=== PATIENT | male | born 1940 | race Caucasian/White ===

== ENCOUNTER 2018-01-18 05:49 | Inpatient (IN) | payer OTHER ==
[2018-01-07 08:51] LABS: ABSOLUTE BASOPHILS 0.1 thou/uL (0.0-0.2); ABSOLUTE EOSINOPHILS 0.1 thou/uL (0.0-0.7); ABSOLUTE LYMPHOCYTES 1.7 thou/uL (0.8-5.3); ABSOLUTE MONOCYTES 0.6 thou/uL (0.0-1.2); BASOPHILS 0.9 %; EOSINOPHILS 2.2 %; HEMATOCRIT 47.3 % (42.0-52.0); HEMOGLOBIN 16.4 gm/dL (14.0-18.0); LYMPHOCYTES 26.1 %; MCH 31.4 pg (26.0-34.0); MCHC 34.7 g/dL (28.0-37.0); MCV 90.5 fL (80.0-100.0); MONOCYTES 9.7 %; MPV 7.3 fl. (7.2-11.1); NUCLEATED RBCS 0 /100WBC; PLATELET COUNT* 202 thou/uL (150-400); POLYS 61.1 %; RBC 5.23 mil/uL (4.50-6.00); RDW-CV 13.5 % (10.5-14.5); WBC 6.6 thou/uL (4.0-11.0)
[2018-01-07 09:00] LABS: APTT 38.2 Seconds (25.0-31.3); INR 2.5; PROTIME 23.9 Seconds (9.20-11.50)
[2018-01-07 09:13] LABS: ALBUMIN 4.2 g/dL (3.4-5.0); CALCIUM 9.2 mg/dL (8.5-10.1); CREATININE 0.9 mg/dL (0.6-1.3); POTASSIUM 4.3 mmol/L (3.5-5.1); TOTAL BILIRUBIN 0.8 mg/dL (<0.1-1.0); TOTAL PROTEIN 7.8 g/dL (6.4-8.2)
[2018-01-07 09:51] LABS: ESR (SEDRATE) 2 mm/hr (0-20)
[~2018-01-18] VITALS: Ht 170.2 cm; Wt 80.7 kg
--- NOTE | ~2018-01-18 | H ---
[address] [address] HISTORY AND PHYSICAL Name: ZACH BAER Room: [address] IN .R.#: [id number] Admission: 01/18/18 Attend Phys: Zach Dial DO Discharge: 01/19/18 Date of : 44 Report #: [id number] THIS REPORT FOR: //name// For History and Physical please refer to the handwritten note in the patient's medical record. By: [facility] Staff STEFAN /CHANTEL
--- NOTE | ~2018-01-18 | EKG ---
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
[~2018-01-18 05:49] MED LIST: ASPIR 8181 M1 PO; BENADRYL25 MG PO; CARVEDILOL6.25 MG PO; CLARITIN10 MG PO; COUMADIN 2.5MG2.5 M1 PO; COUMADIN 5 MG TA5 M1 PO; ELIQUIS5 MG PO; LOPRESSOR25 PO; LOPRESSOR50 PO; LOVASTAT20 PO; LOVASTATIN 20 M20 MG PO; MEVACOR 20 MG T20 MG PO; MEVACOR40 MG PO; NORCO 5-325 TA1 EACH PO; OMEPRAZOLE 20 M20 M1 PO; OMEPRAZOLE20 MG PO; OMEPRAZOLE40 MG PO; SOTALOL80 MG PO; blood pressure med
[2018-01-18 06:23] LABS: INR 1.3; PROTIME 12.5 Seconds (9.20-11.50)
[2018-01-18 06:30] VITALS: BP 139/91
--- NOTE | 2018-01-18 12:33 | NUR ---
PATIENT TRANSFERRED FROM PACU TO ROOM 105. ALERT AND ORIENTED. DENIES PAIN. SPINAL BLOCK. NAVARRETE IN PLACE WITH YELLOW URINE. NOTIFIED PT THAT PATIENT WOULD LIKE TO DC HOME TONIGHT AND WOULD NEED THERAPY PRIOR. FAMILY AT BEDSIDE. DRESSING TO KNEE DRY AND INTACT. TEDS/SCD'S IN PLACE. BED ALARM SET. CALL LIGHT WITHIN REACH. WILL CONTINUE TO MONITOR.
[2018-01-18 15:04] VITALS: BP 139/91
[2018-01-18] MEDS ORDERED: OXYCODONE HCL 55 MG PO (15:10)
--- NOTE | 2018-01-18 15:28 | NUR ---
CM SPOKE TO THE PATIENT TO DISCUSS HOME SITUATION, DISCHARGE PLANNING, AND TO INFORM OF THE ROLE OF CM. PATIENT ALERT, ORIENTED, AND INDEPENDENT WITH ADL'S. PATIENT RESIDES AT [facility] WITH SPOUSE AND SHE IS ABLE TO ASSIST AT HOME NEEDED. PATIENT OWNS A WALKER AND BROUGHT IT WITH HIM TO THE HOSPITAL. PATIENT INFORMS CM THAT HE PLANS TO GO HOME TODAY AND WILL HAVE OUTPATIENT PT AT [facility] AT D/C. CM CONTACTED [facility] TO INFORM OF THE REFERRAL FOR PT AND FAXED THE OUTPATIENT PT ORDERS. PATIENT TO BE SEEN BY PT PRIOR TO TO D/C TO ASSESS MOBILITY, AND SAFETY. CM WILL REMAIN AVAILABLE TO ASSIST AND FOLLOW NEEDED.
[2018-01-18 16:00] VITALS: BP 140/84
--- NOTE | 2018-01-18 16:25 | NUR ---
PATIENT REMAINS ALERT AND ORIENTED. STILL REPORTS NUMBNESS AND TINGLING IN SURGICAL LEG (SPINAL BLOCK). PATIENT WAS ABLE TO WORK WITH PHYSICAL THERAPY. OXYIR GIVEN AT THIS TIME IN ANTICIPATION OF SPINAL WEARING OFF SOON. UP TO CHAIR. NAVARRETE IN PLACE UNTIL LEG MORE AWAKE. TOLERATING MEALS. VSS. FAMILY AT BEDSIDE. PATIENT ENCOURAGED TO STAY THROUGH DINNER TO MAKE SURE PAIN IS CONTROLLED WITH PO MEDS. CALL LIGHT WITHIN REACH.WILL CONTINUE TO MONITOR.
--- NOTE | 2018-01-18 16:29 | NUR ---
PATIENTS DAUGHTER REPORTED EMESIS AFTER OXYIR GIVEN. WILL PAGE DOCTOR FOR NEW SCRIPT.
--- NOTE | 2018-01-18 16:47 | NUR ---
DR. HARMON HERE TO SEE PATIENT TO DISCUSS PAIN MEDICATION OPTIONS.
--- NOTE | 2018-01-18 16:59 | NUR ---
PATIENT TOLERATING DINNER AT THIS TIME. OXYIR DISCONTINUED DUE TO EMESIS, AND TRAMADOL ORDERED. PATIENT WILL TRY TRAMADOL THIS EVENING. PATIENT REPORTS LEG IS STILL NUMB ANDTINGLY BUT HE IS STARTING TO FEEL SOME PAIN. ENCOURAGED PATIENT TO STAY AHEAD OF PAIN. FAMILY AT BEDSIDE. WILL CONTINUE TO MONITOR.
[2018-01-18] MEDS ORDERED: TRAMADOL 50 MG50 MG PO (17:12)
[2018-01-18 20:20] VITALS: BP 128/64
[2018-01-19 00:09] VITALS: BP 112/59
[2018-01-19 04:00] VITALS: BP 106/58
[2018-01-19 04:15] LABS: HEMATOCRIT 36.6 % (42.0-52.0); HEMOGLOBIN 12.8 gm/dL (14.0-18.0)
--- NOTE | 2018-01-19 05:10 | NUR ---
PATIENT ALERT AND ORIENTED X 4. VITALS STABLE. RA. CAPNO IN PLACE. LEFT KNEE DRESSING C/D/I. NAVARRETE TO DEPENDENT DRAINAGE. FLUIDS INFUSING PER ORDER. PAIN CONTROL ISSUES DURING THE NIGHT. PHYSICIAN CONTACTED, ORDERS RECEIVED. PO AND IV AND PAIN MEDICATION GOVEN. PATIENT CURRENTLY RESTING COMFORTABLY. HOURLY ROUNDS. BED ALARM IN USE. NURSING WILL CONTINUE TO MONITOR.
[2018-01-19 08:00] VITALS: BP 110/68
[2018-01-19] MEDS ORDERED: HYDROCODONE-AP1 EAC6 PO (08:37)
--- NOTE | 2018-01-19 11:51 | NUR ---
PATIENT DISCHARGED TO HOME AT THIS TIME. SCRIPTS GIVEN. IV REMOVED. PATIENT HAS SCHEDULED OUTPATIENT PHYSICAL THERAPY. PATIENT INSTRUCTED TO RESUME COUMADIN TONIGHT PER ORTHO. PATIENT VERBALIZES UNDERSTANDING.
--- NOTE | 2018-02-10 06:50 | OP ---
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 PROCEDURE: Left unicompartmental knee replacement. SURGEON: Jennifer Dial DO. ASSISTANTS: Gregg Sampson DO and Timothy Monge DO. ESTIMATED BLOOD LOSS: 50 mL. SPECIMENS: None. COMPLICATIONS: None. PREOPERATIVE ANTIBIOTICS: Two grams Ancef. TOURNIQUET TIME: 71 minutes at 295 mmHg. ORTHOPEDIC IMPLANTS: Biomet Monroe partial knee system, left medial tibial tray size C, twin-pegged femoral component size small and a size 3-mm anatomic meniscal bearing. INDICATION FOR PROCEDURE: This 77-year-old male has previously underwent right unicompartmental knee replacement approximately 10 years ago. He has been doing very well. He has no complaints and has had a great outcome. He has been having significant pain and discomfort with minimal radiographic changes of DJD. He has failed conservative options of steroid injections and physical therapy. He does have medial joint space narrowing. DESCRIPTION OF PROCEDURE: Once written and verbal consent was obtained, the patient received an adductor canal block. He was taken to the operating room and given spinal as well as MAC anesthesia. Left lower extremity was prepared [place] [id number] OPERATIVE REPORT Name: JENNIFER BAER Room: [address] IN [facility].#: [id number] Admission: 01/18/18 Attend Phys: Jennifer Dial DO Discharge: 01/19/18 Date of : 44 Report #: [id number] for surgery. Well-padded tourniquet was applied and he was placed in the Monroe Uni knee kurtz. The timeout was performed to verify the correct operative site, location and procedure as the lower extremity was sterilely prepped and draped in an infection prevention specialist manner. A medial skin incision and arthrotomy was performed and the incision was taken down to the arthrotomy and osteophytes were removed around the medial and lateral aspect of the femoral condyle. Next, our bony cuts were made on the tibia, resecting approximately 2 mm of the medial tibial plateau. Next, our intramedullary lorelei was placed and the femoral sizer was placed and sized to size small C. The femoral jig was placed and was drilled, both the superior and inferior hole and the posterior condyle cutting guide was placed and cuts were made. Next, the reamer was used to make our distal femoral size at the zero spigot, taken through trial and was found to be tight and then was placed a 3 spigot and reamer was used again on the distal femur. All osteophytes and surrounding cartilage was removed. Trial components were placed and found to have symmetric flexion and extension gaps with the size 3 poly. Next, trial components were thoroughly removed and the Unicorn reamer was placed and the chamfer reamer was performed. All chondral areas were removed and found to have good surfaces. The oscillating saw was used to make our tibial tray cut. Everything was thoroughly irrigated. Injection with a cocktail was made around the joint, and the Palacos cement was used and the tibial bearing was impacted into place, followed by the femoral bearing impacted into place and then the tibial tray was placed as well. It was thoroughly irrigated and then the capsular closure was closed with #1 Stratafix in a continuous fashion. Skin was closed with 2-0 Monocryl in simple interrupted fashion and then Stratafix and surgical glue. The sponge and needle count was correct. The patient was awakened and taken to PACU in a stable condition. No complications. The patient tolerated the procedure well. <ELECTRONICALLY SIGNED> By: Sajan Nina DO 02/10/18 0650 [id number] Dial DO /genna
== END 2018-01-19 11:45 | disposition home or self-care (01) | DRG 470 ==
LOC: M.SUR → M.PRE 09:30 → M.SUR 09:33 → EDSTATUS 09:33 → M.SUR 09:37 → M.ORTHSURG 09:52 → M.TBA 09:52 → M.SUR 10:04 → M.ORTHSURG 11:33 → M.SUR 12:25 → M.ORTHSURG 01-19 11:45
PROVIDERS: ADMIT Orthopaedic Surgery
PROC: 0SRD0L9 Replacement of Left Knee Joint with Medial Unicondylar Synthetic Substitute, Cemented, Open Approach (ICD-10-PCS; principal; 2018-01-18)
DX: M17.12 Unilateral primary osteoarthritis, left knee (principal)

== ENCOUNTER → 2020-07-18 | Outpatient (CLI) | payer MEDICARE ==
[2020-07-18] VITALS (8 sets, daily range): BP systolic 122–154; BP diastolic 66–84
[~2020-07-18] MED LIST changes: +HYDROCODONE-AP1 EAC6 PO; +OXYCODONE HCL 55 MG PO; +TRAMADOL 50 MG50 MG PO
--- NOTE | 2020-07-18 17:18 | TEE ---
[place] [address] TRANSESOPHAGEAL ECHOCARDIOGRAM Name: JENNIFER BAER Room: [facility]#: [id number] Admission: 07/18/20 Attend Phys: Philip Michel, Discharge: Date of : 44 Date of Service: 07/18/20 1718 Report #: [id number] THIS REPORT FOR: cc: Saranya Greer Maggie M. DO Liston, Michael J. MD [facility] ~ APPROVED REPORT Study performed: 07/18/2020 11:19:55 EXAM: Transesophageal Echocardiogram Patient Location: [facility] BSA: 1.97 HR: 70 bpm BP: 136/72 mmHg Other Information Study Quality: Good Indications Atrial Fibrillation Echo Enhancing Agent Indication: Rule out Shunt Agent(s) / Amount(s) Used: Agitated Saline cc Procedure After obtaining informed consent, patient underwent transesophageal echo in the [employer]. Type of Sedation : Conscious Sedation Sedation was administered by Corie Conley RN. Sedation was achieved intravenously with: Versed (2) Fentanyl (50) Transesophageal probe was inserted and advanced into esophagus without difficulty by Philip Michel MD, [facility]. Echo enhancement indication: R/O Septal defect. Echo enhancement agent administered: Agitated Saline The RENUKA was performed without complications. Throughout the procedure, the blood pressure, pulse oximetry, cardiac rhythm, and rate were monitored. The patient tolerated the procedure without adverse effects. Recovery from conscious sedation was uneventful and vital signs were stable. [place] [id number] TRANSESOPHAGEAL ECHOCARDIOGRAM Name: BUFFYJENNIFER Bueno Room: [facility]#: [id number] Admission: 07/18/20 Attend Phys: Philip Michel, Discharge: Date of : 44 Date of Service: 07/18/20 1718 Report #: [id number] Left Ventricle The left ventricle is normal size. Mild concentric left ventricular hypertrophy. The left ventricular systolic function is normal. LVEF is 50-55%. Right Ventricle The right ventricle is normal size. Atria Left atrium is mildly dilated. Injection of bubbles documented no interatrial shunt. The right atrium size is normal. Aortic Valve The Aortic valve is sclerotic. No aortic regurgitation is present. Mitral Valve There is mitral annular calcification. Moderate mitral regurgitation. Tricuspid Valve The tricuspid valve is normal in structure. Trace tricuspid regurgitation. Pulmonic Valve The pulmonary valve is normal in structure. <Conclusion> The left ventricle is normal size. Mild concentric left ventricular hypertrophy. The left ventricular systolic function is normal. LVEF is 50-55%. Injection of bubbles documented no interatrial shunt. Left atrium is mildly dilated. The Aortic valve is sclerotic. There is mitral annular calcification. Moderate mitral regurgitation. Trace tricuspid regurgitation. The patient is post left atrial appendage ligation in the setting of open heart surgery. No residual appendage was noted. <ELECTRONICALLY SIGNED> By: Philip Michel MD, FACC 07/18/201717 17 17 Philip Michel MD, FACC /INF
== END | disposition home or self-care (01) ==
LOC: M.CL 10:31
PROVIDERS: ATTEND Internal Medicine Cardiovascular Disease
DX: I48.91 Unspecified atrial fibrillation (principal); I08.1 Rheumatic disorders of both mitral and tricuspid valves; Z98.890 Other specified postprocedural states; Z79.899 Other long term (current) drug therapy; Z79.82 Long term (current) use of aspirin